=== PATIENT | male | born 1945 | race Caucasian/White ===

== ENCOUNTER 2017-07-21 15:00 | Emergency (ER) | payer OTHER ==
[~2017-07-21] VITALS: Ht 177.8 cm; Wt 79.9 kg
[~2017-07-21 15:00] MED LIST: ASPIRIN PO; ASPIRIN81 M1 PO; PLAVIX75 MG PO; TAMIFLU75 MG PO; [UNRECOGNIZED DRUG - OTHER]; [UNRECOGNIZED DRUG - OTHER]; [UNRECOGNIZED DRUG - REMARK] PO
[2017-07-21] MEDS ORDERED: GUAIFENESIN600 M1 PO (15:52)
[2017-07-21] MEDS ORDERED: FLONASE16 G1 BOTH NARES (15:52)
[2017-07-21] MEDS ORDERED: NAPROSYN500 MG PO (15:52)
[2017-07-21 16:06] VITALS: BP 128/71
== END 2017-07-21 16:07 | disposition home or self-care (01) ==
LOC: EME 15:00
DX: J32.9 Chronic sinusitis, unspecified (principal); J06.9 Acute upper respiratory infection, unspecified; J30.2 Other seasonal allergic rhinitis; Z79.02 Long term (current) use of antithrombotics/antiplatelets; Z79.82 Long term (current) use of aspirin; F17.200 Nicotine dependence, unspecified, uncomplicated
CPT/HCPCS: 99281; 99283

== ENCOUNTER 2017-10-16 11:52 | Emergency (ER) | payer OTHER ==
[~2017-10-16] VITALS: Ht 177.8 cm; Wt 82.5 kg
[~2017-10-16 11:52] MED LIST changes: +FLONASE16 G1 BOTH NARES; +GUAIFENESIN600 M1 PO; +NAPROSYN500 MG PO
[2017-10-16] MEDS ORDERED: FLEXERIL10 MG PO (14:43)
[2017-10-16] MEDS ORDERED: MOTRIN800 MG PO (14:43)
[2017-10-16] MEDS ORDERED: PREDNISONE20 MG PO (14:43)
[2017-10-16] MEDS ORDERED: LIDODERM 5% P1 PATCH TD (14:43)
[2017-10-16 15:10] VITALS: BP 103/60
== END 2017-10-16 15:11 | disposition home or self-care (01) ==
LOC: EME 11:52
DX: M25.552 Pain in left hip (principal); M54.32 Sciatica, left side; M19.91 Primary osteoarthritis, unspecified site
CPT/HCPCS: 73502; 99281; 99284

== ENCOUNTER 2017-11-02 01:10 | Emergency (ER) | payer OTHER ==
[~2017-11-02] VITALS: Ht 177.8 cm; Wt 80.7 kg
[~2017-11-02 01:10] MED LIST changes: +FLEXERIL10 MG PO; +LIDODERM 5% P1 PATCH TD; +MOTRIN800 MG PO; +PREDNISONE20 MG PO
[2017-11-02 02:30] LABS: BASOPHIL (%) 0.2 % (0-1); EOSINOPHIL (%) 0.1 % (0-5); HEMATOCRIT 47.3 % (38.0-50.0); HEMOGLOBIN 16.1 G/DL (12.5-16.6); IMMATURE GRANULOCYTE (%) 0.5 % (0.0-0.7); LYMPHOCYTE (%) 10.3 % (15-42); LYMPHOCYTE COUNT 0.9 K/uL (1.0-2.8); MCH 28.6 PG (29.0-34.0); MONOCYTE (%) 1.7 % (3-12); MONOCYTE COUNT 0.2 K/uL (0-0.8); NEUTROPHIL (%) 87.2 % (45-76); NEUTROPHIL COUNT 7.7 K/uL (1.8-6.4); PLATELET COUNT 223 K/uL (156-360); RBC DIS.WIDTH-CV 13.6 % (11.8-14.6); RBC DIS.WIDTH-SD 41.9 % (39-53); RED BLOOD COUNT 5.63 M/uL (4.00-5.50); WHITE BLOOD COUNT 8.8 K/uL (4.1-10.2)
[2017-11-02 02:41] LABS: CHLORIDE 101 mEq/L (99-109); POTASSIUM 4.4 mEq/L (3.7-5.4); SODIUM 135 mEq/L (136-147)
[2017-11-02 02:43] LABS: GLUCOSE 152 mg/dL (70-99); TOTAL PROTEIN 6.8 g/dL (6.4-8.3)
[2017-11-02 02:45] LABS: TOTAL BILIRUBIN 0.3 mg/dL (0.0-1.0)
[2017-11-02 02:47] LABS: ALKALINE PHOSPHATASE 62 IU/L (3-129); CREATININE 1.3 mg/dL (0.6-1.3); GFR ESTIMATE (CALCULATED) 58 mL/min/ (58.99-99999)
[2017-11-02 02:48] LABS: UREA NITROGEN (BUN) 13 mg/dL (9-23)
[2017-11-02 02:49] LABS: AST (GOT) 12 IU/L (2-34)
[2017-11-02 02:52] LABS: TROP-I INTERPRETATION NEGATIVE; TROPONIN-I < 0.01 ng/mL (0.0-0.30)
[2017-11-02 02:56] LABS: ALT (GPT) 10 IU/L (3-49); LIPASE 5 U/L (1.0-51.0)
[2017-11-02 03:24] LABS: APPEARANCE CLOUDY ((CLEAR)); BILIRUBIN NEGATIVE; BLOOD NEGATIVE; COLOR YELLOW ((YELLOW)); GLUCOSE (STRIP) NEGATIVE; KETONES NEGATIVE; LEUKOCYTES NEGATIVE; NITRITE NEGATIVE; PROTEIN (STRIP) NEGATIVE; SPECIFIC GRAVITY 1.017 (1.000-1.030); UROBILINOGEN 0.2 MG/DL (0.2-1.0)
[2017-11-02 03:50] LABS: AMORPHOUS PHOSPHATE CRYSTALS 3+; BACTERIA 3+ /HPF; EPITHELIAL CELLS NONE SEEN /HPF; MUCUS NONE SEEN /LPF; RED BLOOD CELLS NONE SEEN /HPF (0-5); UCUL ADDED? YES; WHITE BLOOD CELLS NONE SEEN /HPF (0-5)
[2017-11-02] MEDS ORDERED: NAPROSYN500 MG PO (04:32)
[2017-11-02] MEDS ORDERED: LIDOCAINE700 MG TP (04:32)
[2017-11-02] MEDS ORDERED: CIPRO500 MG PO (04:35)
[2017-11-02 04:48] VITALS: BP 144/70
== END 2017-11-02 04:50 | disposition left against medical advice (07) ==
LOC: EME 01:10
PROVIDERS: Emergency Medicine
DX: R07.9 Chest pain, unspecified (principal); N39.0 Urinary tract infection, site not specified; N41.9 Inflammatory disease of prostate, unspecified; M54.41 Lumbago with sciatica, right side; I10 Essential (primary) hypertension; E78.5 Hyperlipidemia, unspecified; I25.2 Old myocardial infarction; Z95.5 Presence of coronary angioplasty implant and graft; Z86.73 Personal history of transient ischemic attack (TIA), and cerebral infarction without residual deficits; F17.200 Nicotine dependence, unspecified, uncomplicated; Z79.82 Long term (current) use of aspirin
CPT/HCPCS: 71046; 74176; 80053; 81003; 83690; 84484; 85025; 87086; 93005; 99281; 99284

== ENCOUNTER 2018-02-08 15:31 | Observation (INO) | payer OTHER ==
[~2018-02-08] VITALS: Ht 177.8 cm; Wt 80.5 kg
[~2018-02-08 15:31] MED LIST changes: +CIPRO500 MG PO; +LIDOCAINE700 MG TP
[2018-02-08 16:28] LABS: HEMATOCRIT 44.9 % (38.0-50.0); HEMOGLOBIN 15.4 G/DL (12.5-16.6); MCH 29.2 PG (29.0-34.0); MCHC 34.3 G/DL (30.0-36.0); PLATELET COUNT 210 K/uL (156-360); RBC DIS.WIDTH-CV 13.7 % (11.8-14.6); RED BLOOD COUNT 5.28 M/uL (4.00-5.50); WHITE BLOOD COUNT 7.7 K/uL (4.1-10.2)
[2018-02-08 16:39] LABS: CHLORIDE 102 mEq/L (99-109); POTASSIUM 4.2 mEq/L (3.7-5.4); SODIUM 138 mEq/L (136-147)
[2018-02-08 16:41] LABS: GLUCOSE 107 mg/dL (70-99); PTT 26.4 SEC (25-37)
[2018-02-08 16:45] LABS: CREATININE 1.3 mg/dL (0.6-1.3); GFR ESTIMATE (CALCULATED) 58 mL/min/ (58.99-99999); UREA NITROGEN (BUN) 10 mg/dL (9-23)
[2018-02-08 16:52] LABS: TROP-I INTERPRETATION NEGATIVE; TROPONIN-I < 0.01 ng/mL (0.0-0.30)
[2018-02-08 22:12] LABS: TOTAL BILIRUBIN 0.3 mg/dL (0.0-1.0)
[2018-02-08 22:13] LABS: ALKALINE PHOSPHATASE 62 IU/L (3-129)
[2018-02-08 22:16] LABS: AST (GOT) 17 IU/L (2-34); DIRECT BILIRUBIN 0.1 mg/dL (0.0-0.3)
[2018-02-08 22:17] LABS: ALT (GPT) 13 IU/L (3-49)
[2018-02-08] MEDS ORDERED: FLOMAX0.4 MG PO (22:34)
[2018-02-08] MEDS ORDERED: PLAVIX75 MG PO (22:34)
[2018-02-08] MEDS ORDERED: PROTONIX40 MG PO (22:36)
[2018-02-08] MEDS ORDERED: CRESTOR40 MG PO (22:36)
[2018-02-08] MEDS ORDERED: CHILDREN'S ASPI81 M1 PO (22:37)
[2018-02-08] MEDS ORDERED: NITROSTAT0.4 MG SL (22:37)
[2018-02-08] MEDS ORDERED: VITAMIN D31000 UNI2 PO (22:39)
[2018-02-08] MEDS ORDERED: TYLENOL EXTRA500 MG PO (22:40)
[2018-02-09 04:21] VITALS: BP 112/64
[2018-02-09 05:50] LABS: BASOPHIL (%) 0.8 % (0-1); BASOPHIL COUNT 0.1 K/uL (0-0.1); EOSINOPHIL (%) 1.9 % (0-5); EOSINOPHIL COUNT 0.1 K/uL (0-0.3); HEMATOCRIT 42.9 % (38.0-50.0); HEMOGLOBIN 14.6 G/DL (12.5-16.6); IMMATURE GRANULOCYTE (%) 0.4 % (0.0-0.7); LYMPHOCYTE (%) 24.6 % (15-42); LYMPHOCYTE COUNT 1.8 K/uL (1.0-2.8); MCV 85.1 FL (86-99); MONOCYTE (%) 8.6 % (3-12); MONOCYTE COUNT 0.6 K/uL (0-0.8); NEUTROPHIL (%) 63.7 % (45-76); NEUTROPHIL COUNT 4.7 K/uL (1.8-6.4); PLATELET COUNT 190 K/uL (156-360); RBC DIS.WIDTH-CV 14.1 % (11.8-14.6); RBC DIS.WIDTH-SD 43.8 % (39-53); RED BLOOD COUNT 5.04 M/uL (4.00-5.50); WHITE BLOOD COUNT 7.4 K/uL (4.1-10.2)
[2018-02-09 06:06] LABS: TROP-I INTERPRETATION NEGATIVE; TROPONIN-I < 0.01 ng/mL (0.0-0.30)
[2018-02-09 06:15] LABS: ALBUMIN 3.4 G/DL (3.2-4.8); ALKALINE PHOSPHATASE 46 IU/L (3-129); ALT (GPT) 9 IU/L (3-49); AST (GOT) 12 IU/L (2-34); CHLORIDE 108 MEQ/L (99-109); CREATININE 1.1 MG/DL (0.6-1.3); DIRECT BILIRUBIN 0.1 mg/dL (0.0-0.3); GFR ESTIMATE (CALCULATED) > 59 mL/min/ (58.99-99999); GLUCOSE 116 mg/dL (70-99); POTASSIUM 3.8 MEQ/L (3.7-5.4); SODIUM 141 MEQ/L (136-147); TOTAL BILIRUBIN 0.5 MG/DL (0.0-1.0); TOTAL PROTEIN 5.8 G/DL (6.4-8.3); UREA NITROGEN (BUN) 10 mg/dL (9-23)
[2018-02-09 07:24] VITALS: BP 110/60
[2018-02-09 11:09] VITALS: BP 129/67
[2018-02-09 11:10] VITALS: BP 126/65
[2018-02-09 11:11] VITALS: BP 131/58
[2018-02-09 15:05] VITALS: BP 111/55
== END 2018-02-09 17:06 | disposition home or self-care (01) ==
LOC: EME 15:31 → 4SOUTH 18:43 → EDOF 18:43 → ENRESERV 19:34 → 4SOUTH 21:20
PROVIDERS: Emergency Medicine; Hospitalist
PROC: 0HQ1XZZ Repair Face Skin, External Approach (ICD-10-PCS; principal; 2018-02-08)
PROC: B246ZZZ Ultrasonography of Right and Left Heart (ICD-10-PCS; 2018-02-09)
DX: R55 Syncope and collapse (principal); R94.31 Abnormal electrocardiogram [ECG] [EKG]; S01.81XA Laceration without foreign body of other part of head, initial encounter; E11.9 Type 2 diabetes mellitus without complications; I35.0 Nonrheumatic aortic (valve) stenosis; I25.10 Atherosclerotic heart disease of native coronary artery without angina pectoris; I25.2 Old myocardial infarction; Z95.5 Presence of coronary angioplasty implant and graft; I10 Essential (primary) hypertension; E78.5 Hyperlipidemia, unspecified; F17.210 Nicotine dependence, cigarettes, uncomplicated; Z86.73 Personal history of transient ischemic attack (TIA), and cerebral infarction without residual deficits; M19.90 Unspecified osteoarthritis, unspecified site; Z83.3 Family history of diabetes mellitus; Z81.1 Family history of alcohol abuse and dependence; Z79.02 Long term (current) use of antithrombotics/antiplatelets; Z79.82 Long term (current) use of aspirin
CPT/HCPCS: 70450; 71045; 80048; 80076; 83880; 84484; 85025; 85027; 85610; 85730; 93005; 93306; 95819; 99281; 99285; G0378; J7030

== ENCOUNTER 2018-03-27 16:45 | Emergency (ER) | payer OTHER ==
[~2018-03-27] VITALS: Ht 177.8 cm; Wt 81.2 kg
[~2018-03-27 16:45] MED LIST changes: +CHILDREN'S ASPI81 M1 PO; +CRESTOR40 MG PO; +FLOMAX0.4 MG PO; +NITROSTAT0.4 MG SL; +PROTONIX40 MG PO; +TYLENOL EXTRA500 MG PO; +VITAMIN D31000 UNI2 PO
[2018-03-27 17:02] VITALS: BP 127/73
== END 2018-03-27 18:11 | disposition home or self-care (01) ==
LOC: EME 16:45
DX: L57.0 Actinic keratosis (principal)